=== PATIENT | female | born 1980 | race African-American/Black ===

== ENCOUNTER 2018-05-10 07:09 | Inpatient (IN) | payer OTHER ==
[~2018-05-10] VITALS: Ht 160 cm; Wt 130.6 kg
[~2018-05-10 07:09] MED LIST: TYLENOL #31 TAB PO
[2018-05-10 08:02] LABS: ABSOLUTE BASOPHIL COUNT 0 /CUMM (0.0-0.2); ABSOLUTE EOSINOPHIL COUNT 0.1 /CUMM (0.0-0.7); ABSOLUTE GRANULOCYTE CT 6.4 /CUMM (1.4-6.5); ABSOLUTE LYMPH COUNT 1.2 /CUMM (1.2-3.4); ABSOLUTE MONOCYTE COUNT 0.6 /CUMM (0.10-0.60); BASOPHIL % 0.3 % (0.0-2.0); EOSINOPHIL % 0.9 % (0-5); GRANULOCYTE % 76.5 % (42.2-75.2); HEMATOCRIT 37.7 % (37-47); MEAN CORPUSCULAR HGB 28.7 PG (27.0-31.0); MEAN CORPUSCULAR HGB CONC 33.9 G/DL (33.0-37.0); MEAN CORPUSCULAR VOLUME 84.6 FL (81.0-99.0); MEAN PLATELET VOLUME 8.6 FL (7.4-10.4); PLATELET COUNT 289 /CUMM (130-400); RBC DISTRIBUTION WIDTH 16.8 % (11.5-14.5); RED BLOOD CELL CT 4.45 /CUMM (4.20-5.40); WHITE BLOOD CELL COUNT 8.3 /CUMM (4.8-10.8)
[2018-05-10 09:04] VITALS: BP 136/87
[2018-05-10] MEDS ORDERED: PRENATABS RX T1 EACH PO (09:22)
[2018-05-10] MEDS ORDERED: PROAIR HFA8.5 GM INH (09:22)
--- NOTE | 2018-05-10 09:26 | History & Physical Pre-Op ---
General Information and HPI History of Present Illness: Patient is a 30-year-old 6 para 2 EDC 05/18/2018 at 39 weeks who presents with premature rupture of membranes. She is scheduled for repeat section in 3 days. care is significant for previous and morbid obesity. Blood type B positive RPR nonreactive GBS negative rubella immune. She had an elevated 1 hour Glucola. Allergies/Medications Allergies: Coded Allergies: shellfish derived (Severe, THROAT CLOSES 05/10/18) Home Med list Tylenol With Codeine (Tylenol With Codeine #3 Tablet) 1 EACH TABLET 1-2 TAB PO Q6H PRN PAIN Past History Medical History Respiratory: asthma Surgical History Pertinent Surgical History: Past Family/Social History Psychosocial History Smoking Status: Never Smoked Review of Systems Review of Systems Constitutional: Reports: no symptoms. EENTM: Reports: no symptoms. Cardiovascular: Reports: no symptoms. Respiratory: Reports: no symptoms. GI: Reports: no symptoms. Genitourinary: Reports: no symptoms. Musculoskeletal: Reports: no symptoms. Skin: Reports: no symptoms. Neurological/Psychological: Reports: no symptoms. Hematologic/Endocrine: Reports: no symptoms. Immunologic/Allergic: Reports: no symptoms. All Other Systems: Reviewed and Negative Exam & Diagnostic Data Last 24 Hrs of Vital Signs/I&O Vital Signs Date Time Temp Pulse Resp B/P B/P Pulse O2 O2 Flow FiO2 Mean Ox Delivery Rate 05/10 0904 136/87 Intake & Output 05/10 1600 05/10 0800 05/10 0000 Intake Total Output Total Balance Patient 288 lb Weight Physical Exam: HEENT: Normocephalic atraumatic Chest: Clear to auscultation Cardiovascular: Normal S1-S2 Abdomen: Obese gravid cephalic presentation Extremities: No clubbing cyanosis or edema Neurologic: Nonfocal Diagnostic Data ITS Data Unobtainable at this time Assessment/Plan Assessment/Plan: Premature rupture of membranes at 39 weeks previous Plan: Repeat section As Ranked By This Provider Problem List: 1. Previous section
--- NOTE | 2018-05-10 11:42 | Operative Report ---
Operative/Inv Procedure Report Surgery Date: 05/10/18 Name of Procedure: Repeat Pre-Operative Diagnosis: Previous Post-Operative Diagnosis: Same Estimated Blood Loss: 850 mL Surgeon/Surfboard Designer: Rupert FRANK,Мария Bhakta M.D. Anesthesia: epidural Operative/Procedure Note Note: The patient was brought to the operating room and placed on the OR table in the sitting position where she underwent spinal anesthetic without complication. She was repositioned in the dorsal supine with a block under her right. Grove catheter was inserted into the bladder and drained particularly urine. The abdomen was prepped and draped and tested in the usual fashion. A Pfannenstiel skin incision was made with a scalpel through the old scar and taken down to the layer of the fascia. The fascia was nicked in the midline and extended bilaterally. This muscles were from the overlying fascia sharply and bluntly. The peritoneum was entered sharply with Metzenbaum scissors and extended bilaterally. The bladder blade was inserted to protect the bladder from the operative field. A low transverse uterine incision was made with scalpel and the uterine cavity was entered. The incision was extended bilaterally and a liveborn infant was delivered atraumatically and handed off to the waiting administrative sales assistant. There was a nuchal cord and body cord noted at delivery. The placenta was then manually removed intact with three-vessel cord. The uterus was exteriorized and wiped clean with a wet lap sponge. The uterine incision was closed in 2 layers of 0 Polysorb, the second imbricating the first. 2 [id number] sutures were needed on the left angle for better hemostasis. The abdomen and pelvis were copiously irrigated and uterus is placed back into the abdominal cavity. Suture line was once again visualized and noted to be hemostatic. The rectus muscles were reapproximated using 0 Polysorb. Fascia was closed using #1 Polysorb in a running nonlocking fashion. Subcutaneous tissues were irrigated where needed and coagulated. Skin was closed using trevor a dry sterile dressing was applied to the wound patient was sent to recovery in good condition. All needle, sponge, and inspected counts were correct at the end of the procedure 4.
[2018-05-11 07:34] LABS: ABSOLUTE BASOPHIL COUNT 0 /CUMM (0.0-0.2); ABSOLUTE EOSINOPHIL COUNT 0 /CUMM (0.0-0.7); ABSOLUTE GRANULOCYTE CT 6.9 /CUMM (1.4-6.5); ABSOLUTE LYMPH COUNT 1.3 /CUMM (1.2-3.4); ABSOLUTE MONOCYTE COUNT 0.5 /CUMM (0.10-0.60); BASOPHIL % 0.3 % (0.0-2.0); EOSINOPHIL % 0.3 % (0-5); GRANULOCYTE % 79.5 % (42.2-75.2); MEAN CORPUSCULAR HGB 28.4 PG (27.0-31.0); MEAN CORPUSCULAR HGB CONC 33.3 G/DL (33.0-37.0); MEAN CORPUSCULAR VOLUME 85.2 FL (81.0-99.0); MEAN PLATELET VOLUME 8.4 FL (7.4-10.4); PLATELET COUNT 217 /CUMM (130-400); RBC DISTRIBUTION WIDTH 16.5 % (11.5-14.5); RED BLOOD CELL CT 3.38 /CUMM (4.20-5.40); WHITE BLOOD CELL COUNT 8.7 /CUMM (4.8-10.8)
[2018-05-11 07:37] LABS: HEMATOCRIT 28.8 % (37-47)
--- NOTE | 2018-05-11 08:57 | Labor & Delivery Summary ---
Delivery Summary Section: Section: repeat # (1) Indication: RPT Anesthesia: SPINAL Placenta: Placenta: normal, 3 vessel, manual Apgars - 1 Min: 9 Apgars - 5 Min: 9
--- NOTE | 2018-05-11 08:58 | PN- Post Delivery/GYN ---
Subjective Subjective: NO C/O Review of Systems: NEG; POS FLATUS Objective Last 24 Hrs of Vital Signs/I&O Vital Signs Date Time Temp Pulse Resp B/P B/P Pulse O2 O2 Flow FiO2 Mean Ox Delivery Rate 05/10 0904 136/87 Physical Exam: INCISION C/D/I EXT NT Assessment/Plan Assessment/Plan S/P RPT C/S POD1 STABLE D/C GOLDEN ADVANCE DIET INCREASE ACTIVITY Problem List: 1. Previous section
--- NOTE | 2018-05-12 10:27 | PN- Post Delivery/GYN ---
Subjective Subjective: no c/o Review of Systems: not ambulating Objective Last 24 Hrs of Vital Signs/I&O vss afebrile Physical Exam: ff incision c/d/i ext nt Assessment/Plan Assessment/Plan s/p rpt c/s pod2 stable needs to OOB and ambulate Problem List: 1. Previous section
[2018-05-13] MEDS ORDERED: IBUPROFEN800 M1 PO (09:03)
[2018-05-13] MEDS ORDERED: FERROUS SULFAT325 M2 PO (09:03)
[2018-05-13] MEDS ORDERED: DOCUSATE SODIU100 M3 PO (09:03)
[2018-05-13] MEDS ORDERED: PERCOCET 5-3251 EACH PO (09:03)
== END 2018-05-13 12:04 | DRG 540 ==
LOC: CBCO 07:09 → GNO 08:35 → LCXP 13:30 → GNO 14:00
PROVIDERS: Obstetrics & Gynecology
PROC: 10D00Z1 Extraction of Products of Conception, Low, Open Approach (ICD-10-PCS; principal; 2018-05-10)
DX: O34.211 Maternal care for low transverse scar from previous cesarean delivery (principal); Z3A.38 38 weeks gestation of pregnancy; Z37.0 Single live birth; O99.214 Obesity complicating childbirth
CPT/HCPCS: GNOS; 36415; 81001; 84112; 87086; J0131; J0690; J1050; J1650; J1885; J7120